=== PATIENT | female | born 1930 | race Caucasian/White ===

== ENCOUNTER 2019-02-19 11:34 | Emergency (ER) | payer OTHER ==
[~2019-02-19] VITALS: Ht 154.9 cm; Wt 66.2 kg
[~2019-02-19 11:34] MED LIST: AMOX1TAB5 PO; COZAAR100 MG; FUROSEMIDE20 MG; GLUMETZA500 MG/BOT; OMEPRAZOLE20 MG; SIMVASTATIN20 MG; SYNTHROID100 MCG; VISTARIL25 MG PO
[2019-02-19] MEDS ORDERED: XYZAL5 MG PO (13:25)
[2019-02-19] MEDS ORDERED: CORTISONE60 GM TOP (13:25)
== END 2019-02-19 13:30 | disposition home or self-care (01) ==
LOC: ER 11:34
DX: L20.89 Other atopic dermatitis (principal)